=== PATIENT | female | born 1990 | race Two or more races ===

== ENCOUNTER 2016-11-25 06:53 | Emergency (ER) | payer OTHER, MEDICAID ==
[2016-11-25 07:33] LABS: ABSOLUTE NEUTROPHIL COUNT 2.9 K/mm3 (1.8-7.7); BASO % 0.7 % (0.2-1.0); EOS # 0.1 (0.0-0.5); EOS % 1.8 % (0.9-2.9); HEMATOCRIT 33.6 % (37.0-47.0); HEMOGLOBIN 11.2 gm/l (12.0-16.0); IMM NEUT% 0.2 % (0-1); LYMPH # 2.2 (1.0-4.8); LYMPH % 39.8 % (15-45); MEAN CELL VOLUME 92.3 fl (81.0-99.0); MEAN CORPUSCULAR HEMOGLOBIN 30.8 pg (27.0-31.0); MEAN CORPUSCULAR HGB CONC 33.3 g/dl (33.0-37.0); MEAN PLATELET VOLUME 9.4 fl (7.4-10.4); MONO # 0.3 (0.0-0.8); NEUT % 51.5 % (43-75); PLATELET COUNT 209 K/mm3 (130-400); RED CELL DISTRIBUTION WIDTH 11.9 % (11.5-14.5)
--- NOTE | 2016-11-25 08:22 | US ---
OB COMP <14 WKS, OB TRANSVAGINAL CLINICAL HISTORY: 25 years old LMP 10/11/2016. EDC 07/18/2017. MGA 6 weeks 3 days. A1. Vaginal bleeding since 11/19/2016. COMPARISON: None TECHNIQUE: Transabdominal and transvaginal. FINDINGS: Uterus: Single intrauterine gestation. Gestational sac size and shape: Normal size and shape. Mean sac diameter: 1.74 cm = 6 weeks 1 days. [place] rump length: 0.63 cm = 6 weeks 3 days. Estimated date of confinement: 07/18/2017 Embryo: Yes Yolks sac: Yes heart tones: Yes 114-116 Beats per minute Somatic motion: Not applicable. Placenta: Too early to comment. Radha-gestational bleed: To the right, heterogeneous fluid collection, 2.5 x 1.9 x 1.7 cm Right ovary: 1.3 x 3.4 x 2.3 cm. Normal blood flow. Left ovary: 2.1 x 3.5 x 4.2 cm. 2.7 x 2.5 x 1.8 cm complex cyst or corpus luteum. Normal blood flow to the ovary. Impression: 1. Live intrauterine gestation with a perigestational bleed larger than the gestational sac and decreased embryo heart rate, worrisome for threatened spontaneous . 2. In the left ovary, 2.7 x 2.5 x 1.8 cm complex cyst or corpus luteum. Normal blood flow. 3. No free pelvic fluid or adnexal mass. The report was sent to the emergency department electronic medical record system, 11/25/2016 at 8:22.
== END 2016-11-25 08:47 | disposition home or self-care (01) ==
LOC: ED 06:53
DX: O20.0 Threatened abortion (principal); Z3A.01 Less than 8 weeks gestation of pregnancy